=== PATIENT | female | born 1945 | race Caucasian/White ===

== ENCOUNTER 2021-08-24 11:30 | Day surgery (SDC) | payer MEDICARE ==
[~2021-08-24 11:30] MED LIST: Metoclopramide 10 MG/2 ML SDV IV PRN
[2021-08-24] MEDS: Sodium Chloride 0.9% 1,000 ML IV SCH (12:05)
[2021-08-24] MEDS ORDERED: Atropine 0.4 MG/ML SDV ONE (14:50)
== END 2021-08-24 16:00 | disposition home or self-care (01) ==
LOC: LB.SDS 11:30
PROVIDERS: ATTEND Surgery
DX: Z12.11 Encounter for screening for malignant neoplasm of colon (principal); K57.30 Diverticulosis of large intestine without perforation or abscess without bleeding; Z98.890 Other specified postprocedural states
CPT/HCPCS: J0461; J2704; J7030